=== PATIENT | female | born 1995 | race Caucasian/White ===

== ENCOUNTER 2018-11-16 06:53 | Inpatient (IN) | payer OTHER ==
[~2018-11-16] VITALS: Ht 160 cm; Wt 79.5 kg
[2018-11-16] VITALS (42 sets, daily range): BP systolic 94–155; BP diastolic 53–93; PULSE 72–127; TEMP 97.9–99.5
--- NOTE | 2018-11-16 07:10 | NUR ---
Patient ambulatory to unit accompanied by spouse and sister for induction of labor. Patient in gown and resting in bed. Patient and family oriented to room and call light. Patient denies any leaking of fluid, vaginal bleeding and states baby has been active. G2 L1, 38.2 weeks gestation. Induction at 38.2 for growth restriction. Assessment completed. Consents signed. IV started in left hand at 0735, labs collected from IV site, and LR infusing without difficulty. Pen G started at 0736. Plan of care reviewed and will continue with Pitocin.
[2018-11-16] MEDS ORDERED: CONCEPT DHA1 CAP PO (07:18)
[2018-11-16 07:53] LABS: BASO % 0.2 % (0.0-2.0); EOS % 0.3 % (0-4.0); GRAN # 6.5 (1.4-6.5); GRAN % 70.9 % (42.2-75.2); HEMOGLOBIN 11.5 g/dl (12.5-16.0); LYMPH # 1.8 (1.2-3.4); LYMPH % 19.7 % (20.0-51.0); MEAN CELL VOLUME 85 fl (80.0-100.0); MEAN CORPUSCULAR HEMOGLOBIN 28 pg (27.0-31.0); MEAN CORPUSCULAR HGB CONC 33 g/dl (33.0-37.0); MEAN PLATELET VOLUME 8.9 fl (7.4-10.4); MONO # 0.8 (0.1-0.6); MONO % 8.4 % (1.7-9.3); PLATELET COUNT 236 K/mm3 (130-400); REDCELL DISTRIBUTION WIDTH-CV 12.8 % (11.5-14.5)
[2018-11-16 07:57] LABS: HEMATOCRIT 34.9 % (37.0-47.0)
--- NOTE | 2018-11-16 08:55 | NUR ---
0855: Dr. Davila at bedside. Plan of care reviewed. AROM with small amount of clear fluid noted. SVE /-[address] Davila. Pericare provided and patient resting in bed, left lateral.
[2018-11-16] MEDS ORDERED: PERCOCET 325 MG1 TA2 PO (09:15)
[2018-11-16] MEDS ORDERED: MOTRIN 800800 MG/TAB PO (09:15)
--- NOTE | 2018-11-16 10:05 | NUR ---
Patient sitting at side of bed on birthing ball, breathing controlled through contractions.
--- NOTE | 2018-11-16 11:00 | NUR ---
Patient calls out with request to have cervix checked. Patient breathing heavily but controlled through contractions. SVE /-1. Patient requests an epidural. Lindsay Otoole CRNA called to room for epidural.
--- NOTE | 2018-11-16 11:22 | NUR ---
1122: Patient repositioned and sitting up at side of bed for epidural placement. Lindsay Otoole CRNA in room and epidural explained. Time out completed. Second dose of Pen G infusing. FHR not tracing well while patient in position for epidural. Monitors adjusted. 1136: Epidural catheter placed. 1138: Test dose given and no reaction to test dose. Epidural secured to patients back and patient repositioned resting wedged right at 1143.
--- NOTE | 2018-11-16 11:55 | NUR ---
1155: Patient resting without complaint. Feeling slight pain on left lower abdomen during contractions but tolerable. Dr. Davila at bedside, SVE /-1, small amount of bloody show noted with exam. Dr. Davila gives verbal order to increase pitocin and max rate of 20mu/min
--- NOTE | 2018-11-16 14:00 | NUR ---
1400: Recurrent FHR variable decelerations down to 60-80 bpm. SVE 10/100/+1. Practice push and good desent noted. Dr. Davila called to hospital for delivery.
--- NOTE | 2018-11-16 14:15 | NUR ---
Dr. Davila at bedside and patient begins pushing with contractions. 1418: Spontaneous vaginal delivery of infant head, immediately followed by infant body. nose and mouth suctioned out with bulb syringe by Dr. Davila and infant to mothers abdomen where attended to by Tristen Joyce RN. Pitocin off. Father of baby cuts umbilical cord with assist from Dr. Davila. 1422: Spontaneous and intact delivery of placenta. Pitocin restarted at 333ml/hr. Fundus massaged, firm and down 2 from umbilicus. Bilateral labia lacerations repaired. Pericare provided, ice pack to perineum. Patient sitting up holding . See labor and delivery summary, doctor dictation and anesthesia records.
--- NOTE | 2018-11-16 17:20 | NUR ---
Patient sitting up, epidural catheter removed, blue tip intact, band aid to site. IV to INT. Patient ambulates to bathroom, able to void, pericare provided. Gown on and patient taken to room 214. Resting in bed. States she would like pain medication. Motrin given. Resting in bed holding .
[2018-11-17 01:20] VITALS: BP 113/71; PULSE 87; TEMP 97.7
[2018-11-17 05:11] VITALS: BP 110/64; PULSE 76; TEMP 97.8
[2018-11-17 07:00] VITALS: BP 113/62; PULSE 86; TEMP 97.4
--- NOTE | 2018-11-17 09:23 | NUR ---
Initial visit; Parents thanked [employer] Pl[employer] for offering congratulations and God's blessings for the of their daughter. Fitter Placer thanked them for choosing [facility].
[2018-11-17 16:26] VITALS: BP 114/68; PULSE 76; TEMP 98.2
[2018-11-17 23:00] VITALS: BP 117/70; PULSE 80; TEMP 97.7
[2018-11-18 08:30] VITALS: BP 116/62; PULSE 75; TEMP 98.7
--- NOTE | 2018-11-18 13:45 | NUR ---
Patient educated on pumping. Patient pumping at this time.
--- NOTE | 2018-11-18 14:45 | NUR ---
patient given discharge instructions. Denies questions and verbalizes understanding. Escorted off of unit with .
== END 2018-11-18 14:45 | disposition home or self-care (01) | DRG 807 ==
LOC: OB 06:53 → LDR 06:53 → OB 15:22
PROVIDERS: ADMIT Obstetrics & Gynecology
PROC: 10E0XZZ Delivery of Products of Conception, External Approach (ICD-10-PCS; principal; 2018-11-16)
PROC: 0UQMXZZ Repair Vulva, External Approach (ICD-10-PCS; 2018-11-16)
PROC: 10907ZC Drainage of Amniotic Fluid, Therapeutic from Products of Conception, Via Natural or Artificial Opening (ICD-10-PCS; 2018-11-16)
PROC: 3E033VJ Introduction of Other Hormone into Peripheral Vein, Percutaneous Approach (ICD-10-PCS; 2018-11-16)
DX: O36.5930 Maternal care for other known or suspected poor fetal growth, third trimester, not applicable or unspecified (principal); Z37.0 Single live birth; O99.344 Other mental disorders complicating childbirth; F41.9 Anxiety disorder, unspecified; O99.824 Streptococcus B carrier state complicating childbirth; O34.03 Maternal care for unspecified congenital malformation of uterus, third trimester; Q51.3 Bicornate uterus; O70.0 First degree perineal laceration during delivery; Z3A.38 38 weeks gestation of pregnancy
CPT/HCPCS: J2540; J2590; J7120